=== PATIENT | female | born 1975 | race Caucasian/White ===

== ENCOUNTER 2017-03-05 07:33 | Emergency (ER) | payer BC ==
[~2017-03-05] VITALS: Ht 170.2 cm; Wt 72.7 kg
[2017-03-05] MEDS ORDERED: IMIP50TA3 PO (07:57)
[2017-03-05] MEDS ORDERED: LAMO10TA PO (07:57)
[2017-03-05] MEDS ORDERED: PROP60TA14 PO (07:57)
[2017-03-05] MEDS ORDERED: CLON0.5T PO (07:57)
[2017-03-05] MEDS ORDERED: TIZA2CAP3 PO (07:57)
[2017-03-05] MEDS ORDERED: NS 1,000 ML IV ONE (08:30)
[2017-03-05 08:56] LABS: CONTROL LINE UCG INT CTR LINE PRESENT
[2017-03-05 08:56] LABS: BASO % 0.8 % (0.0-1.0); EOS # 0.2 10^3/uL (0.0-0.50); EOS % 4.5 % (0.0-3.0); IMMATURE GRANULOCYTE % 0.2 % (0-0); LYMPH # 1.2 10^3/uL (1.5-4.5); LYMPH % 23.4 % (24.0-44.0); MEAN CORPUSCULAR HGB CONC 34.5 g/dl (32.0-36.5); MEAN CORPUSCULAR VOLUME 87.2 fl (80.0-96.0); MONO # 0.4 10^3/uL (0.0-0.8); MONO % 8.1 % (0.0-5.0); NEUTROPHILS # 3.3 10^3/uL (1.8-7.7); PLATELET COUNT, AUTOMATED 258 10^3/uL (150-450); RED CELL DISTRIBUTION WIDTH 12.2 % (11.5-14.5); WHITE BLOOD COUNT 5.3 10^3/uL (4.0-10.0)
[2017-03-05 09:11] LABS: ALBUMIN/GLOBULIN RATIO 1.33 (1.00-1.93); ALKALINE PHOSPHATASE 64 U/L (45-117); ALT/SGPT 22 U/L (12-78); AMYLASE 69 U/L (25-115); ANION GAP 7 MEQ/L (8-16); AST/SGOT 11 U/L (7-37); BILIRUBIN,DIRECT < 0.1 MG/DL (0.0-0.2); BILIRUBIN,TOTAL 0.2 MG/DL (0.2-1.0); BLOOD UREA NITROGEN 20 MG/DL (7-18); CALCIUM LEVEL 8.6 MG/DL (8.5-10.1); CARBON DIOXIDE LEVEL 27 MEQ/L (21-32); CHLORIDE LEVEL 102 MEQ/L (98-107); CREATININE FOR GFR 0.77 MG/DL (0.55-1.02); GLOMERULAR FILTRATION RATE > 60.0 (>60); GLUCOSE, FASTING 88 MG/DL (70-105); POTASSIUM SERUM 4.1 MEQ/L (3.5-5.1); SODIUM LEVEL 136 MEQ/L (136-145)
[2017-03-05] MEDS ORDERED: KETOROLAC 30 MG/ML VIAL (J1885) IV ONE (09:15)
[2017-03-05] MEDS ORDERED: ONDANSETRON 4MG/2ML VIAL (J2405) IV ONE (09:15)
--- NOTE | 2017-03-05 10:08 | REP ---
ABDOMEN, THREE VIEWS: HISTORY: Diarrhea. Air is present in small and large intestine. There are no dilated loops of intestine. Several air fluid levels are present. There is no pneumoperitoneum. Surgical clips are present in the right upper quadrant and left mid lateral abdomen. IMPRESSION: Nonspecific bowel gas pattern. Signed by Cosme Macias MD 03/05/2017 10:43 A
[2017-03-05] MEDS ORDERED: IBUP-1022 PO (10:41)
[2017-03-05] MEDS ORDERED: ZOFR4TAB3 PO (10:41)
[2017-03-05 10:49] VITALS: BP 113/70
== END 2017-03-05 10:51 | disposition home or self-care (01) ==
LOC: M ED 07:33
DX: E86.0 Dehydration (principal); S39.012A Strain of muscle, fascia and tendon of lower back, initial encounter; R11.2 Nausea with vomiting, unspecified; R19.7 Diarrhea, unspecified; R10.84 Generalized abdominal pain; M79.1 Myalgia; X58.XXXA Exposure to other specified factors, initial encounter; Y92.89 Other specified places as the place of occurrence of the external cause; Y93.89 Activity, other specified; Y99.8 Other external cause status; F41.9 Anxiety disorder, unspecified; R51 Headache; Z79.899 Other long term (current) drug therapy
CPT/HCPCS: 74020; 80048; 80076; 81001; 82150; 83690; 84703; 85025; 87507; 96374; 96375; 99284; J1885; J2405